=== PATIENT | male | born 1970 | race Caucasian/White ===

== ENCOUNTER 2017-06-01 21:31 | Emergency (ER) | payer MEDICARE, MEDICAID ==
[2017-06-01] MEDS ORDERED: Sulfamethoxazole/Trimethoprim 800-160 MG Tab PO ONE (22:35)
[2017-06-01 22:43] VITALS: BP 163/86
--- NOTE | 2017-06-01 23:46 | ER ---
DATE SEEN: 06/01/2017 REASON FOR VISIT: Fever. HISTORY OF PRESENT ILLNESS: A 46-year-old male with fever. The fever started yesterday insidiously and has been going on since this morning. It is associated with body aches, and also an abscess on the right buttock. He has type 2 diabetes, chronic renal failure. He has ambulatory peritoneal dialysis five times a day. Recently, his oral hypoglycemics were stopped and he was started on Lantus 10 units. His sugars have been running high. REVIEW OF SYSTEMS: No cough, no abdominal pain. Has nausea, but no vomiting. ALLERGIES: None. PHYSICAL EXAMINATION: GENERAL: He is moderately ill. VITAL SIGNS: Blood pressure is 156/85, pulse is 111, and temperature is 100.4. ABDOMEN: Soft, nontender. SKIN: There is a fluctuant mass on the right buttock that is tender. CHEST AND HEART: Normal to auscultation. LABORATORY DATA: White cell count is 16.2, hemoglobin 9.9. Electrolytes showed a potassium of 3.3 and sodium of 132, glucose was 402. IMPRESSION: 1. Ischiorectal abscess. 2. Uncontrolled type 2 diabetes. 3. Chronic renal failure. PLAN: I did incision and drainage. Large copious amounts of foul-smelling pus was drained from the 1 cm incision on the right buttock. I did not pack it. A huge pressure dressing was placed. Continue absorption. I started the patient on Bactrim DS one tablet b.i.d. I recommended that he see Dr. Huffman tomorrow. Increase his Lantus to 20 units every night starting tonight. He probably will need mealtime insulin, but I would like it discussed tomorrow in the office. If symptoms get worse tonight, to come back to the ER. TIME SEEN: 1030 hours. /[id number] VAZQUEZ/TANA
== END 2017-06-01 22:50 | disposition home or self-care (01) ==
LOC: FB.ED 21:31
DX: R50.9 Fever, unspecified (principal); K61.3 Ischiorectal abscess; L02.31 Cutaneous abscess of buttock; E11.22 Type 2 diabetes mellitus with diabetic chronic kidney disease; N18.9 Chronic kidney disease, unspecified; Z79.4 Long term (current) use of insulin
CPT/HCPCS: 10060; 36415; 80053; 82962; 85025; 87070; 87077; 99282; 99283; A9270; 46040

== ENCOUNTER 2018-02-08 17:35 | Emergency (ER) | payer MEDICARE, MEDICAID ==
[2018-02-08] MEDS ORDERED: Sulfamethoxazole/Trimethoprim 800-160 MG Tab PO ONE (20:03)
[2018-02-08 20:41] VITALS: BP 145/96
--- NOTE | 2018-02-09 14:12 | ER ---
DATE SEEN: 02/08/2018 REASON FOR VISIT: Abscess of the thigh. HISTORY OF PRESENT ILLNESS: This is a 47-year-old male with type 2 diabetes, chronic kidney disease, who presents with thigh abscess on the right for the last 2 days. He has moderate pain, no fever. REVIEW OF SYSTEMS: No systemic symptoms. No nausea or vomiting. ALLERGIES: No known allergies. PHYSICAL EXAMINATION: GENERAL: He is well nourished. VITAL SIGNS: His blood pressure is 184/104, pulse 108, temperature 99.2. EXTREMITIES: Right thigh in the posterior aspect revealed a mass that is tender and fluctuant, warm to palpation, measures about 10 cm in size. IMPRESSION: Thigh abscess. PLAN: Incision and drainage was discussed. The patient accepted the risks. I prepped the area. I put 1 inch incision and drained copious amounts of pus. I packed it with iodoform gauze, dressed with ABD, and discharged to home the patient with Bactrim DS b.i.d. Advised to follow up tomorrow or Monday for removal and change of dressing. Time seen was 2000 hours. /[id number] VAZQUEZ/TANA
== END 2018-02-08 20:17 | disposition home or self-care (01) ==
LOC: FB.ED 17:35
DX: L02.415 Cutaneous abscess of right lower limb (principal); E11.22 Type 2 diabetes mellitus with diabetic chronic kidney disease; N18.9 Chronic kidney disease, unspecified
CPT/HCPCS: 10060; 99282; 99283; A9270

== ENCOUNTER 2019-04-11 21:08 | Emergency (ER) | payer MEDICARE, MEDICAID ==
[2019-04-11] MEDS ORDERED: diphenhydrAMINE 12.5 MG/5 ML Liquid ML (473 ML Bottle) PO ONE (21:32)
[2019-04-11] MEDS ORDERED: cefTRIAXone 1 GM Vial IM ONE (21:32)
--- NOTE | 2019-04-11 21:35 | EDM.PDOC ---
ED HPI GENERAL MEDICAL PROBLEM - General Stated Complaint: RT FOOT BLISTER Time Seen by Provider: 04/11/19 21:08 Source of Information: Reports: Patient, Family History Limitations: Reports: No Limitations - History of Present Illness INITIAL COMMENTS - FREE TEXT/NARRATIVE: 48 y.o.w.m with a H/o ESRD, on Peritoneal HD, came o the ed with is SO after he noticed redness and blisters at his left toes 1 and 2 as he took off his left old leather boot. Pt was wearing socks but his boots were worn out and metal of his boots may have had contact with his forefoot. Pt denies trauma. TD UTD. No N/V/D or any other acute med issues. BP 150/95 RR 18 Pulse ox 100% on RA pulse 100 temp 36.7 Onset Date: 04/11/19 Onset Time: 19:00 Duration: Hour(s):, Constant Location: Reports: Lower Extremity, Left (forefoot toes 1,2,3 with blister on the tip of toes 1 and 2) Quality: Reports: Dull Severity: Mild Improves with: Reports: Rest Worsens with: Reports: Movement Context: Reports: Other (poor qualities of shoes) Associated Symptoms: Reports: Other (pt has ESR and is on peritoneal HD) - Related Data Allergies Allergy/AdvReac Type Severity Reaction Status Date / Time No Known Allergies Allergy Verified 02/08/18 18:42 Home Meds: Home Meds Carvedilol 25 mg PO BID 06/01/17 [History] Cinacalcet [Sensipar] 30 mg PO BEDTIME 06/01/17 [History] Gentamicin [Gentamicin 0.1%] 1 applic TOP DAILY 06/01/17 [History] Losartan [Cozaar] 50 mg PO BID 06/01/17 [History] Potassium Chloride 10 meq PO DAILY 06/01/17 [History] Sennosides [Senokot] 1 - 2 tab PO BID 06/01/17 [History] Simvastatin [Zocor] 40 mg PO BEDTIME 06/01/17 [History] Sucroferric Oxyhydroxide [Velphoro] 500 mg PO TID 06/01/17 [History] B Complex W-C No.20/Folic Acid [Triphrocaps Softgel] 1 mg PO DAILY 04/12/19 [ History] Cholecalciferol (Vitamin D3) [Vitamin D3] 2,000 units PO DAILY 04/12/19 [History ] Darbepoetin Fei in Polysorbat [Aranesp] 04/12/19 [History] Insulin Degludec [Tresiba Flextouch U-100] 36 units SQ DAILY 04/12/19 [History] glipiZIDE [Glucotrol] 10 mg PO BIDMEALS 04/12/19 [History] Past Medical History Other HEENT History: 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 Cardiovascular History: Reports: High Cholesterol, Hypertension Other Gastrointestinal History: on peritoneal dialysis, catheter in the stomach Genitourinary History: Reports: Dialysis, Peritoneal Endocrine/Metabolic History: Reports: Diabetes, Type II - Infectious Disease History Infectious Disease History: Reports: Chicken Pox Social & Family History - Family History Family Medical History: Noncontributory - Caffeine Use Caffeine Use: Reports: Coffee ED ROS GENERAL - Review of Systems Review Of Systems: See Below Constitutional: Reports: No Symptoms HEENT: Reports: No Symptoms Respiratory: Reports: No Symptoms Cardiovascular: Reports: No Symptoms Endocrine: Reports: Other (H/O DM) GI/Abdominal: Reports: Other (pt is on peritoneal HD) : Reports: No Symptoms Musculoskeletal: Reports: Foot Pain (forefoot redness/ blisters) Skin: Reports: Rash, Other (blister left toe 1 and 2) Neurological: Reports: No Symptoms Psychiatric: Reports: No Symptoms Hematologic/Lymphatic: Reports: No Symptoms Immunologic: Reports: No Symptoms ED EXAM, SKIN/RASH Exam: See Below Exam Limited By: No Limitations General Appearance: Alert, WD/WN, Mild Distress Eye Exam: Bilateral Eye: Normal Inspection Ears: Normal External Exam Nose: Normal Inspection Throat/Mouth: Normal Lips, Normal Voice, No Airway Compromise, Other (poor dentition) Head: Atraumatic, Normocephalic Neck: Normal Inspection, Supple, Non-Tender, Full Range of Motion Respiratory/Chest: No Respiratory Distress, Lungs Clear, Normal Breath Sounds Cardiovascular: Normal Peripheral Pulses Peripheral Pulses: 1+: Brachial (L) GI/Abdominal: Normal Bowel Sounds, Other (on peritoneal Hemoldialysis) (Male) Exam: Deferred Rectal (Males) Exam: Deferred Back Exam: Normal Inspection, Full Range of Motion Extremities: Normal Range of Motion, Redness (with blister toes 1 and 2 left foot) Neurological: Alert, Oriented, CN II-XII Intact, Normal Cognition, Other (came in a whel chair) Psychiatric: Normal Affect, Normal Mood Skin: Warm, Dry, Wound/Incision (eruthema of toe 1 and 2 left foot with blisters ) Location, Skin: Other (left foot) Associated features: Warmth, Tenderness Lymphatic: No Adenopathy Course - Vital Signs Text/Narrative:: 48 y.o.w.m with a H/o ESRD, on Peritoneal HD, came o the ed with is SO after he noticed redness and blisters at his left toes 1 and 2 as he took off his left old leather boot. Pt was wearing socks but his boots were worn out and metal of his boots may have had contact with his forefoot. Pt denies trauma. TD UTD. No N/V/D or any other acute med issues. BP 150/95 RR 18 Pulse ox 100% on RA pulse 100 temp 36.7 PE: WNWD W M on Peritoneal dialysis, erythema amd blisters left 1 2 toes, no pain Toradol, Rocephin Impression: blister left toes 1 and 2 with erythematous Tx: Rocephin, wound care Plan: D/C with instructions Last Recorded V/S: Last Vital Signs Temp 36.8 C 04/11/19 21:08 Pulse 99 04/11/19 22:50 Resp 18 04/11/19 22:50 BP 152/95 H 04/11/19 22:50 Pulse Ox 97 04/11/19 22:50 - Orders/Labs/Meds Meds: Medications Discontinued Medications Generic Name Dose Route Start Last Admin Trade Name Abena PRN Reason Stop Dose Admin Ceftriaxone Sodium 1 gm 04/11/19 21:32 04/11/19 21:56 Rocephin IM 04/11/19 21:33 1 gm ONETIME ONE Administration Diphenhydramine HCl 25 mg 04/11/19 21:32 04/11/19 22:26 Benadryl PO 04/11/19 21:33 Not Given ONETIME ONE Diphenhydramine HCl 50 mg 04/11/19 21:47 04/11/19 21:56 Benadryl PO 04/11/19 21:48 50 mg ONETIME ONE Administration Diphenhydramine HCl Confirm 04/11/19 21:55 04/11/19 22:26 Benadryl Administered 04/11/19 21:56 Not Given Dose 50 mg .ROUTE .STK-MED ONE Departure - Departure Time of Disposition: 22:38 Disposition: Home, Self-Care 01 Condition: Good Clinical Impression: ESRD (end stage renal disease) on dialysis, Blister (nonthermal), right great toe, initial encounter Cellulitis Qualifiers: Site of cellulitis of extremity: lower extremity Laterality: right - Discharge Information Instructions: Blisters, Adult Referrals: Warren Huffman MD [Primary Care Provider] - Forms: ED Department Discharge Additional Instructions: Please cont your current meds, please f/u with your PMD in e next 1-2 days for wound check
[2019-04-11] MEDS ORDERED: diphenhydrAMINE 50 MG Cap PO ONE (21:47)
[2019-04-11] MEDS ORDERED: diphenhydrAMINE 50 MG Cap ONE (21:55)
[2019-04-12 03:13] VITALS: BP 152/95
== END 2019-04-11 22:50 | disposition home or self-care (01) ==
LOC: FB.ED 21:08
DX: S90.421A Blister (nonthermal), right great toe, initial encounter (principal); S90.424A Blister (nonthermal), right lesser toe(s), initial encounter; L03.031 Cellulitis of right toe; I12.0 Hypertensive chronic kidney disease with stage 5 chronic kidney disease or end stage renal disease; E11.22 Type 2 diabetes mellitus with diabetic chronic kidney disease; N18.6 End stage renal disease; Z99.2 Dependence on renal dialysis; X50.9XXA Other and unspecified overexertion or strenuous movements or postures, initial encounter; E78.00 Pure hypercholesterolemia, unspecified; Z79.4 Long term (current) use of insulin; Z79.899 Other long term (current) drug therapy
CPT/HCPCS: 96372; 99282; A9270; J0696